=== PATIENT | female | born 1970 | race Caucasian/White ===

== ENCOUNTER 2023-10-02 14:13 | Emergency (ER) | payer BC | END 2023-10-02 14:46 | disposition home or self-care (01) | LOC: MW.ED 14:13 | DX: R20.0 Anesthesia of skin (principal); I10 Essential (primary) hypertension; E78.00 Pure hypercholesterolemia, unspecified; Z79.899 Other long term (current) drug therapy; Z75.8 Other problems related to medical facilities and other health care | CPT/HCPCS: 82947; 99284 ==

== ENCOUNTER 2024-01-10 21:53 | Emergency (ER) | payer BC ==
[2024-01-10] MEDS: Sulfamethoxazole/Trimethoprim 800-160 MG Tab PO ONE (23:19)
[2024-01-10] MEDS: Cephalexin 500 MG Cap PO ONE (23:19)
== END 2024-01-10 23:21 | disposition home or self-care (01) ==
LOC: MW.ED 21:53
DX: L03.211 Cellulitis of face (principal); I10 Essential (primary) hypertension; E78.00 Pure hypercholesterolemia, unspecified; Z75.8 Other problems related to medical facilities and other health care; Z79.899 Other long term (current) drug therapy
CPT/HCPCS: 99283; A9270

== ENCOUNTER 2024-04-15 23:31 | Emergency (ER) | payer BC ==
[2024-04-16] MEDS: Azithromycin 250 MG Tab PO STA (02:25)
[2024-04-16] MEDS: Ibuprofen 600 MG Tab PO ONE (02:25)
== END 2024-04-16 02:34 | disposition home or self-care (01) ==
LOC: MW.ED 23:31
DX: J40 Bronchitis, not specified as acute or chronic (principal); Z72.0 Tobacco use; I10 Essential (primary) hypertension; E78.00 Pure hypercholesterolemia, unspecified; Z75.8 Other problems related to medical facilities and other health care; Z79.899 Other long term (current) drug therapy
CPT/HCPCS: 71046; 87428; 99284; A9270

== ENCOUNTER 2024-07-01 14:28 | Emergency (ER) | payer BC ==
[2024-07-01] MEDS: Ondansetron 4 MG/2 ML SDV IVPUSH ONE (15:18)
[2024-07-01] MEDS: Sodium Chloride 0.9% 1,000 ML IV STA (15:19)
[2024-07-01] MEDS: LORazepam 2 MG/ML SDV IVPUSH ONE (15:19)
== END 2024-07-01 16:33 | disposition home or self-care (01) ==
LOC: MW.ED 14:28
DX: G43.909 Migraine, unspecified, not intractable, without status migrainosus (principal); I10 Essential (primary) hypertension; E78.00 Pure hypercholesterolemia, unspecified; F17.210 Nicotine dependence, cigarettes, uncomplicated; Z75.3 Unavailability and inaccessibility of health-care facilities; Z79.899 Other long term (current) drug therapy; Z86.16 Personal history of COVID-19
CPT/HCPCS: 96361; 96374; 96375; 99284; J2060; J2405; J7030; 99283

== ENCOUNTER 2024-07-26 21:36 | Emergency (ER) | payer BC ==
[2024-07-26 22:17] LABS: APPEARANCE,URINE CLEAR; BILIRUBIN,URINE NEGATIVE (NEGATIVE); COLOR,URINE YELLOW; GLUCOSE,URINE NEGATIVE (NEGATIVE); KETONES,URINE NEGATIVE (NEGATIVE); LEUKOCYTE ESTERASE,URINE NEGATIVE (NEGATIVE); NITRITE,URINE NEGATIVE (NEGATIVE); OCCULT BLOOD,URINE MODERATE (NEGATIVE); PROTEIN,URINE NEGATIVE (NEGATIVE); UROBILINOGEN,URINE 0.2 EU/dL (<2.0)
[2024-07-26 22:26] LABS: AMPHETAMINES SCREEN, URINE NEGATIVE (CUTOFF=500); BARBITURATE SCREEN,URINE NEGATIVE (CUTOFF=200); BENZODIAZEPINES SCREEN,URINE NEGATIVE (CUTOFF=150); BUPRENORPHINE SCREEN,URINE NEGATIVE (CUTOFF=10); METHADONE SCREEN, URINE NEGATIVE (CUTOFF=200); METHAMPHETAMINES SCREEN, URINE NEGATIVE (CUTOFF=500); OXYCODONE SCREEN,URINE NEGATIVE (CUT0FF=100); PCP SCREEN,URINE NEGATIVE (CUTOFF=25); THC SCREEN,URINE 20 NG/ML NEGATIVE (CUTOFF=50)
[2024-07-26 22:29] LABS: BASOPHILS ABSOLUTE AUTO 0.07 K/uL (0.00-0.20); BASOPHILS PERCENT AUTO 0.7 % (0.0-1.0); EOSINOPHILS PERCENT AUTO 2.1 % (0.0-6.0); HEMATOCRIT 39.8 % (37.0-47.0); IMMATURE GRAN ABSOLUTE AUTO 0.02 K/uL (0.00-0.05); IMMATURE GRAN PERCENT AUTO 0.2 % (0.0-0.4); LYMPHOCYTES ABSOLUTE AUTO 2.92 K/uL (1.00-4.80); LYMPHOCYTES PERCENT AUTO 31.2 % (24.0-44.0); MEAN CORPUSCULAR HEMOGLOBIN 32.3 pg (28.0-32.0); MEAN CORPUSCULAR HGB CONC 35.2 g/dL (32.0-36.0); MEAN CORPUSCULAR VOLUME 91.7 fL (83.0-99.0); MEAN PLATELET VOLUME 9.7 fL (9.4-12.3); MONOCYTES ABSOLUTE AUTO 0.58 K/uL (0.00-0.80); MONOCYTES PERCENT AUTO 6.2 % (0.0-8.0); NEUTROPHILS ABSOLUTE AUTO 5.57 K/uL (1.80-7.70); NEUTROPHILS PERCENT AUTO 59.6 % (41.0-71.0); PLATELET COUNT,PLT 212 K/uL (150-400); RED BLOOD CELL COUNT 4.34 M/uL (4.10-5.30); WHITE BLOOD CELL COUNT,WBC 9.36 K/uL (3.9-11.3)
[2024-07-26] MEDS: Famotidine 20 MG/2 ML SDV IVPUSH ONE (22:39)
[2024-07-26] MEDS: Ondansetron 4 MG/2 ML SDV IVPUSH ONE (22:39)
[2024-07-26] MEDS: Alum Hydrox/Mag Hydrox/Simeth 15 ML, Lidocaine 2% 5 ML PO ONE (22:39)
[2024-07-26] MEDS: Sodium Chloride 0.9% 1,000 ML IV ONE (22:39)
[2024-07-26 22:41] LABS: WBC,URINE 0-2 (0-5/HPF)
[2024-07-26 22:42] LABS: BACTERIA,URINE NOT SEEN (NEGATIVE); EPITHELIAL CELLS,URINE NOT SEEN (NONE-FEW)
[2024-07-26 22:58] LABS: A/G RATIO 1.3 (0.9-1.6); ALBUMIN 3.6 g/dL (3.4-5.0); BILIRUBIN TOTAL 0.4 mg/dL (0.2-1.0); CALCIUM 9.4 mg/dL (8.5-10.1); CARBON DIOXIDE,CO2 29.8 mmol/L (21.0-32.0); CREATININE 0.8 mg/dL (0.6-1.0); EST CRCL DRUG DOSING (CG) 72.34 mL/min; POTASSIUM,K 3.6 mmol/L (3.5-5.1); PROTEIN TOTAL,TP 6.3 g/dL (6.4-8.2)
== END 2024-07-26 23:51 | disposition home or self-care (01) ==
LOC: MW.ED 21:36
DX: K21.9 Gastro-esophageal reflux disease without esophagitis (principal); R53.1 Weakness; I10 Essential (primary) hypertension; E78.00 Pure hypercholesterolemia, unspecified; F17.200 Nicotine dependence, unspecified, uncomplicated; Z79.899 Other long term (current) drug therapy
CPT/HCPCS: 36415; 71045; 80053; 80305; 81001; 83690; 84484; 85025; 87428; 93005; 96361; 96374; 96375; 99285; A9270; J2405; J7030; 93010; 99283